=== PATIENT | female | born 1980 | race Two or more races ===

== ENCOUNTER 2021-02-07 11:32 | Emergency (ER) | payer MEDICAID, OTHER ==
[~2021-02-07] VITALS: Ht 170.2 cm; Wt 67.6 kg
[2021-02-07 12:07] LABS: Basophils # (auto) 0 10 ^3/uL (0-0.2); Basophils % (auto) 0.8 % (0.0-2.0); Eosinophils # (auto) 0 10 ^3/uL (0-0.8); Eosinophils % (auto) 0.5 % (0.0-7.0); Hematocrit 39.1 % (36.0-46.0); Hemoglobin 13.5 g/dL (12.2-16.2); Lymphocytes # (auto) 2.7 10 ^3/uL (0.4-5.4); Lymphocytes % (auto) 44.3 % (10.0-50.0); Mean Corpuscular Hemoglobin 33.2 pg (28.0-32.0); Mean Corpuscular Hgb Conc. 34.4 g/dL (32.0-36.0); Mean Corpuscular Volume 96.4 fL (80.0-100.0); Monocytes # (auto) 0.6 10 ^3/uL (0-1.3); Monocytes % (auto) 9.1 % (0.0-12.0); Neutrophils # (auto) 2.8 10 ^3/uL (1.6-8.6); Neutrophils % (auto) 45.3 % (37.0-80.0); Platelet Count (auto) 249 10^3/uL (140-450); Red Blood Cells 4.06 10^6/uL (4.0-5.20); White Blood Cell 6.1 10^3/uL (4.4-10.8)
[2021-02-07 12:26] LABS: Salicylate < 1.7 mg/dL (2.8-20.0)
[2021-02-07 12:30] LABS: Acetaminophen < 2.0 ug/mL (10-30)
[2021-02-07] MEDS ORDERED: ONDANSETRON HCL 4 MG/2 ML VIAL IV ONE (12:45)
[2021-02-07] MEDS ORDERED: ACTIVATED CHARCOAL 50 GM/240 ML SOL PO ONE (12:45)
[2021-02-07 12:58] LABS: Urine Amorphous Crystal MOD /hpf (None Seen); Urine Bacteria MOD /hpf (None Seen); Urine Blood Negative /uL (Negative); Urine Specific Gravity 1.004 (1.001-1.035); Urine WBC 10 /hpf (0 - 5)
[2021-02-07] MEDS ORDERED: SODIUM CHLORIDE 0.9% 1,000 ML IV ONE (13:00)
[2021-02-07 13:07] LABS: Amphetamine Screen, Urine NEGATIVE (NEGATIVE); Barbiturate Scree,Urine NEGATIVE (NEGATIVE); Benzodiazephine Screen, Urine POSITIVE (NEGATIVE); Cannabinoid Screen, Urine NEGATIVE (NEGATIVE); Cocaine Screen, Urine NEGATIVE (NEGATIVE); Opiate Scree,Urine NEGATIVE (NEGATIVE); Phencyclidine Screen, Urine NEGATIVE (NEGATIVE)
[2021-02-07 13:08] LABS: Albumin 3.2 g/dL (3.4-5.0); Calcium 8.4 mg/dL (8.5-10.1); Potassium 3.5 mmol/L (3.5-5.1)
[2021-02-07 13:11] LABS: Bilirubin, Total 0.3 mg/dL (0.2-1.0); Total Protein 6.6 g/dL (6.4-8.2)
[2021-02-07] MEDS ORDERED: FOLIC ACID 1 MG, MULTIPLE VITAMIN 10 ML, MAGNESIUM SULF SDV 50% 8 MEQ, THIAMINE INJ 100... INJ STA ×5 (15:13)
[2021-02-07] MEDS ORDERED: THIAMINE 100mg/ml INJ (200mg/2ml VIAL) IV ONE (15:15)
[2021-02-07 18:15] LABS: Calcium 7.6 mg/dL (8.5-10.1); Potassium 3.9 mmol/L (3.5-5.1)
[2021-02-07 18:20] LABS: BUN/Creatinine Ratio 10.7; Bilirubin, Total 0.2 mg/dL (0.2-1.0); Total Protein 6.1 g/dL (6.4-8.2)
[2021-02-07] MEDS ORDERED: cefTRIAXone 1GM/50ML D5W 50 ML IV ONE (21:15)
[2021-02-07] MEDS ORDERED: ACETAMINOPHEN 325 MG TAB PO ONE (22:00)
[2021-02-08] MEDS ORDERED: HYDROcodone-ACET 5/325MG TAB PO ONE (08:15)
[2021-02-08] MEDS: NITROFURANTOIN 100 mg CAP PO SCH ×2 (08:18→22:05)
[2021-02-08] MEDS ORDERED: CALCIUM CARB 500 MG CHEW TAB ONE (11:24)
[2021-02-08] MEDS ORDERED: CALCIUM CARB 500 MG CHEW TAB PO PRN (11:30)
[2021-02-08] MEDS ORDERED: ACETAMINOPHEN 325 MG TAB PO ONE ×2 (13:26→20:30)
[2021-02-08] MEDS: ACETAMINOPHEN 325 MG TAB PO PRN (13:28)
[2021-02-08] MEDS ORDERED: KETOROLAC TROMETH 60MG/2ML VIAL IM ONE (22:00)
[2021-02-09] MEDS: ACETAMINOPHEN 325 MG TAB PO PRN (08:42)
[2021-02-09] MEDS: NITROFURANTOIN 100 mg CAP PO SCH (11:19)
[2021-02-09 16:36] VITALS: BP 121/76
== END 2021-02-09 17:26 ==
LOC: ER 11:32
DX: T42.4X2A Poisoning by benzodiazepines, intentional self-harm, initial encounter (principal); R40.0 Somnolence; F32.9 Major depressive disorder, single episode, unspecified; N39.0 Urinary tract infection, site not specified; F10.20 Alcohol dependence, uncomplicated; F17.210 Nicotine dependence, cigarettes, uncomplicated; F41.9 Anxiety disorder, unspecified; G89.29 Other chronic pain; Z20.822 Contact with and (suspected) exposure to COVID-19; Z98.84 Bariatric surgery status; Y90.6 Blood alcohol level of 120-199 mg/100 ml; Y92.89 Other specified places as the place of occurrence of the external cause
CPT/HCPCS: 36415; 71045; 74176; 80053; 80307; 80320; 80329; 81001; 81025; 84702; 85025; 87426; 93005; 96361; 96365; 96366; 96367; 96372; 96375; 99285; C9803; J0696; J1885; J2405; J3411; J3475; J7030; U0003

== ENCOUNTER 2022-04-10 17:42 | Emergency (ER) | payer MEDICAID ==
[~2022-04-10] VITALS: Ht 170.2 cm; Wt 77.1 kg
[~2022-04-10 17:42] MED LIST: CITA-77 PO; QUET100T47 PO
[2022-04-10 20:03] LABS: Hematocrit 36.4 % (36.0-46.0); Hemoglobin 12.5 g/dL (12.2-16.2); Mean Corpuscular Hemoglobin 32.7 pg (28.0-32.0); Mean Corpuscular Hgb Conc. 34.4 g/dL (32.0-36.0); Red Blood Cells 3.83 10^6/uL (4.0-5.20); Red Cell Distribution Width 16.6 % (11.8-14.3); White Blood Cell 4.9 10^3/uL (4.4-10.8)
[2022-04-10 20:06] LABS: Band Neutrophils % (manual) 0; Basophils % (manual) 0 (0.0-2.0); Blast Cells 0; Metamyelocytes % 0; Myelocytes % 0; Promyelocytes % 0; Reactive Lymphocytes 0
[2022-04-10 20:14] LABS: Albumin 3.2 g/dL (3.4-5.0); Calcium 8.4 mg/dL (8.5-10.1); Potassium 3.7 mmol/L (3.5-5.1)
[2022-04-10 20:17] LABS: BUN/Creatinine Ratio 14.6; Bilirubin, Total 0.5 mg/dL (0.2-1.0); Total Protein 6.8 g/dL (6.4-8.2)
[2022-04-10 20:42] LABS: Eosinophils % (manual) 1 (0-7); Lymphocytes % (manual) 51 (10.0-50.0); Monocytes % (manual) 8 (0-12)
[2022-04-10] MEDS ORDERED: THIAMINE 100mg/ml INJ (200mg/2ml VIAL) IV ONE (21:30)
[2022-04-10] MEDS ORDERED: SODIUM CHLORIDE 0.9% 1,000 ML IV ONE ×2 (21:30)
[2022-04-10 23:00] VITALS: BP 128/77
== END 2022-04-11 00:38 | disposition left against medical advice (07) ==
LOC: ER 17:42
DX: I10 Essential (primary) hypertension (principal); F10.10 Alcohol abuse, uncomplicated; F32.9 Major depressive disorder, single episode, unspecified; F17.210 Nicotine dependence, cigarettes, uncomplicated; Z79.899 Other long term (current) drug therapy; Y90.9 Presence of alcohol in blood, level not specified
CPT/HCPCS: 36415; 80053; 83540; 85007; 85027; 96361; 96374; 99283; J3411; J7030

== ENCOUNTER 2022-06-12 20:50 | Emergency (ER) | payer MEDICAID | END 2022-06-12 22:15 | disposition left against medical advice (07) | LOC: EDBD 20:50 → ER 20:50 | DX: M54.9 Dorsalgia, unspecified (principal); Z53.21 Procedure and treatment not carried out due to patient leaving prior to being seen by health care provider ==

== ENCOUNTER 2024-06-15 17:35 | Emergency (ER) | payer MEDICAID ==
[~2024-06-15] VITALS: Ht 170.2 cm; Wt 79.0 kg
[2024-06-15 18:04] VITALS: PULSE 98; RESP 13; O2SAT 98
[2024-06-15] MEDS: SODIUM CHLORIDE 0.9% 1,000 ML IVB ONE (18:11)
[2024-06-15] MEDS: ONDANSETRON HCL 4 MG/2 ML VIAL IV ONE (18:15)
[2024-06-15 18:27] LABS: Basophils # (auto) 0 10 ^3/uL (0-0.2); Basophils % (auto) 0.8 % (0.0-2.0); Eosinophils # (auto) 0 10 ^3/uL (0-0.8); Eosinophils % (auto) 0.9 % (0.0-7.0); Hemoglobin 9.7 g/dL (12.2-16.2); Lymphocytes # (auto) 2.7 10 ^3/uL (0.4-5.4); Lymphocytes % (auto) 49.3 % (10.0-50.0); Mean Corpuscular Hemoglobin 27.2 pg (28.0-32.0); Mean Corpuscular Hgb Conc. 32.2 g/dL (32.0-36.0); Mean Corpuscular Volume 84.3 fL (80.0-100.0); Monocytes # (auto) 0.5 10 ^3/uL (0-1.3); Monocytes % (auto) 9.1 % (0.0-12.0); Neutrophils # (auto) 2.2 10 ^3/uL (1.6-8.6); Neutrophils % (auto) 39.9 % (37.0-80.0); Red Blood Cells 3.56 10^6/uL (4.0-5.20); Red Cell Distribution Width 18.7 % (11.8-14.3); White Blood Cell 5.4 10^3/uL (4.4-10.8)
[2024-06-15 18:44] LABS: Acetaminophen < 2.0 UG/ML (10.0-20.0)
[2024-06-15 18:52] LABS: Salicylate < 3.0 mg/dL (2.8-20.0)
[2024-06-15] MEDS ORDERED: ZOFR4T PO (20:27)
[2024-06-15 20:46] VITALS: BP 110/67; PULSE 90; RESP 17; TEMP 97.9; O2SAT 98
== END 2024-06-15 20:46 | disposition home or self-care (01) ==
LOC: ER 17:35
DX: F10.129 Alcohol abuse with intoxication, unspecified (principal); F32.9 Major depressive disorder, single episode, unspecified; F12.10 Cannabis abuse, uncomplicated; F41.9 Anxiety disorder, unspecified; I10 Essential (primary) hypertension; Z98.51 Tubal ligation status; Y90.8 Blood alcohol level of 240 mg/100 ml or more
CPT/HCPCS: 36415; 80320; 80329; 85025; 96361; 96374; 99285; J2405; J7030

== ENCOUNTER 2024-09-21 21:11 | Inpatient (IN) | payer MEDICAID ==
[~2024-09-21] VITALS: Ht 167.6 cm; Wt 81.9 kg
[~2024-09-21 21:11] MED LIST changes: +ZOFR4T PO
[2024-09-21 21:35] VITALS: PULSE 93; RESP 20; O2SAT 96
--- NOTE | 2024-09-21 22:02 | ED.PDOC ---
Altered Mental Status HPI Comments 44-year-old female brought in by EMS presents with a chief complaint of ALOC s/p overdose to Xanax and Metoprolol. Per EMS, patient told her son's that she took a lot of her medication with the intent to commit suicide x onset 2030 this evening. Patient had an empty bottle of Xanax 0.25mg that was refilled yesterday with 60 pills, and took an unknown amount of Metoprolol. Patients son stated to EMS that she took medications with alcohol. Patient is only arousable to sternal rubs, but is A&Ox0. Patient is non-verbal at this time and theres no family bedside to provide further information at this time. Chief Complaint: Overdose Time Seen by MD: 21:50 Primary Care Provider: THANH Reviewed Notes: Medications, Allergies Allergies: Coded Allergies: NO KNOWN ALLERGIES (Unverified , 02/07/21) Home Meds Active Scripts Ondansetron Odt 4MG Tab (ZOFRAN PO) 4 Mg Tb, 4 MG PO Q8HP PRN for 5 Days, #15 TAB ODT TAB-DISSOLVE IN MOUTH, THEN SWALLOW Prov:LA SHAH MD 06/15/24 Reported Medications Quetiapine Fumerate (QUETIAPINE FUMARATE) 100 Mg Tab, 1 TAB PO DAILY AT NIGHT 08/31/21 Citalopram Hydrobromide (Citalopram Hydrobromide) 20 Mg Tab, 1 TAB PO DAILY 08/31/21 Information Source: Patient Mode of Arrival: EMS Severity: Unresponsive Timing: Hours Duration: Since onset Prehospital treatment: None Quality: Decreased Alertness, Change in Behavior Recent: Medication/Drug Abuse History of: None Associated Signs and Symptoms: None Past Medical History PAST MEDICAL HISTORY: Anxiety, Depression, HTN, Liver, Seizures Surgical History: Tubal Ligation 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: No Pertinent 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 Family History Family History: No family hx of Cancer, No family hx of DM, No family hx of Heart maria l Social History Smoker: Non-Smoker Alcohol: Heavy Drugs: Marijuana Lives In: Home Constitutional: denies: chills, diaphoresis, fatigue, fever, malaise, sweats, weakness, others EENTM: denies: blurred vision, double vision, ear bleeding, ear discharge, ear drainage, ear pain, ear ringing, eye pain, eye redness, hearing loss, mouth pain, mouth swelling, nasal discharge, nose bleeding, nose congestion, nose pain, photophobia, tearing, throat pain, throat swelling, voice changes, others Respiratory: denies: cough, hemoptysis, orthopnea, SOB at rest, shortness of breath, SOB with excertion, stridor, wheezing, others Cardiovascular: denies: chest pain, dizzy spells, diaphoresis, Dyspnea on exertion, edema, irregular heart beat, left arm pain, lightheadedness, palpitations, PND, syncope, others Gastrointestinal: denies: abdomen distended, abdominal pain, blood streaked bowels, constipated, diarrhea, dysphagia, difficulty swallowing, hematemesis, melena, nausea, poor appetite, poor fluid intake, rectal bleeding, rectal pain, vomiting, others Genitourinary: denies: abnormal vagina bleeding, burning, dyspareunia, dysuria, flank pain, frequency, hematuria, incontinence, pain, , vagina discharge, urgency, others Neurological: denies: dizziness, fainting, headache, left sided numbness, left sided weakness, numbness, paresthesia, pre-existing deficit, right sided numbness, right sided weakness, seizure, speech problems, tingling, tremors, weakness, others Musculoskeletal: denies: back pain, gout, joint pain, joint swelling, muscle pain, muscle stiffness, neck pain, others Integumetry: denies: bruises, change in color, change in hair/nails, dryness, laceration, lesions, lumps, rash, wounds, others Allergic/Immunocompromised: denies: Difficulty Healing, Frequent Infections, Hives, Itching, others Hematologic/Lymphatic: denies: anemia, blood clots, easy bleeding, easy bruising, swollen glands, others Endocrine: denies: excessive hunger, excessive sweating, excessive thirst, excessive urination, flushing, intolerance to cold, intolerance to heat, unexplained weight gain, unexplained weight loss, others Psychiatric: denies: anxiety, bipolar disorder, depression, hopeless, panic disorder, schizophrenia, sleepless, suicidal, others Unable to Obtain due to: Altered Mental Status All Other Systems: Reviewed and Negative Physical Exam General Appearance: Moderate Distress, Normal HEENT: Normal ENT Inspection, Pharynx Normal, TMs Normal Neck: Full Range of Motion, Non-Tender, Normal, Normal Inspection Respiratory: Chest Non-Tender, Lungs Clear, No Accessory Muscle Use, No Respiratory Distress, Normal Breath Sounds Cardiovascular: No Edema, No JVD, No Murmur, No Gallop, Normal Peripheral Pulses, Regular Rate/Rhythm Breast Exam: Deferred Gastrointestinal: No Organomegaly, Non Tender, No Pulsatile Mass, Normal Bowel Sounds, Soft Genitalia: Deferred Pelvic: Deferred Rectal: Deferred Extremities: No calf tenderness, Normal capillary refill, Normal inspection, Normal range of motion, Non-tender, No pedal edema Musculoskeletal : Apperance: Normal Neurologic: Alert, front office representative II-XII nml as Tested, No Motor Deficits, Normal Affect, Normal Mood, No Sensory Deficits Cerebellar Function: Normal Reflexes: Normal Skin: Dry, Normal Color, Warm Lymphatic: No Adenopathy Was a procedure done? Was a procedure done?: No Differential Diagnosis (ALOC) Differential Diagnosis: Seizure, Drug Overdose, ETOH Intoxication, Other (Suicide ideations) X-Ray, Labs, Meds, VS Vital Signs Date Time Temp Pulse Resp B/P (MAP) Pulse Ox O2 Delivery O2 Flow Rate FiO2 09/21/24 21:37 90 09/21/24 21:26 97.5 96 16 121/84 (96) 95 Lab Test 09/21/24 22:07 09/21/24 21:52 Range/Units Urine Color Colorless Yellow Urine Clarity Clear Clear Urine pH 5.0 5.0-9.0 Urine Specific [place] 1.005 1.001-1.035 Urine Protein Negative Negative Urine Ketones Negative Negative Urine Blood Negative Negative /uL Urine Nitrite Negative Negative Urine Bilirubin Negative Negative Urine Urobilinogen Normal Negative mg/dL Urine Leukocyte Esterase Negative Negative /uL Urine RBC 2 0 - 4 /hpf Urine WBC 2 0 - 5 /hpf Urine Squamous Epithelial Cells Few <5 /hpf Urine Bacteria Few H None Seen /hpf Urine Glucose Normal Normal mg/dL Urine Opiates Screen Neg NEGATIVE Urine Fentanyl Screen Neg NEGATIVE Urine Barbiturates Screen Neg NEGATIVE Urine Phencyclidine Screen Neg NEGATIVE Urine Amphetamines Screen Neg NEGATIVE Urine Benzodiazepines Screen Pos NEGATIVE Urine Cocaine Screen Neg NEGATIVE Urine Cannabinoids Screen Neg NEGATIVE White Blood Count 4.2 L 4.4-10.8 10^3/uL Red Blood Count 3.82 L 4.0-5.20 10^6/uL Hemoglobin 10.6 L 12.2-16.2 g/dL Hematocrit 33.6 L 36.0-46.0 % Mean Corpuscular Volume 88.0 80.0-100.0 fL Mean Corpuscular Hemoglobin 27.8 L 28.0-32.0 pg Mean Corpuscular Hemoglobin Concent 31.6 L 32.0-36.0 g/dL Red Cell Distribution Width 19.5 H 11.8-14.3 % Platelet Count 257 140-450 10^3/uL Mean Platelet Volume 7.6 6.9-10.8 fL Neutrophils (%) (Auto) 76.7 37.0-80.0 % Lymphocytes (%) (Auto) 20.6 10.0-50.0 % Monocytes (%) (Auto) 2.2 0.0-12.0 % Eosinophils (%) (Auto) 0.0 0.0-7.0 % Basophils (%) (Auto) 0.5 0.0-2.0 % Neutrophils # (Auto) 3.2 1.6-8.6 10 ^3/uL Lymphocytes # (Auto) 0.9 0.4-5.4 10 ^3/uL Monocytes # (Auto) 0.1 0-1.3 10 ^3/uL Eosinophils # (Auto) 0 0-0.8 10 ^3/uL Basophils # (Auto) 0 0-0.2 10 ^3/uL Nucleated Red Blood Cells 0.0 % Sodium Level 141 136-145 mmol/L Potassium Level 3.7 3.5-5.1 mmol/L Chloride Level 109 H 98-107 mmol/L Carbon Dioxide Level 21 20-31 mmol/L Anion Gap 11 5-15 Blood Urea Nitrogen 11 9-23 mg/dL Creatinine 0.68 0.550-1.02 mg/dL Glomerular Filtration Rate Calc 110 >90 mL/min BUN/Creatinine Ratio 16.2 10.0-20.0 Serum Glucose 155 H 74-106 mg/dL Calcium Level 9.5 8.7-10.4 mg/dL Magnesium Level 1.5 L 1.6-2.6 mg/dL Total Bilirubin 0.2 0.2-1.0 mg/dL Aspartate Amino Transferase (AST) 20 13-40 U/L Alanine Aminotransferase (ALT) 29 7-40 U/L Alkaline Phosphatase 80 46-116 U/L Troponin I High Sensitivity < 3 L </=34 ng/L Total Protein 6.9 5.7-8.2 g/dL Albumin 4.4 3.2-4.8 g/dL Salicylates Level < 3.0 -30 mg/dL Acetaminophen Level < 2.0 L 10.0-20.0 UG/ML Plasma/Serum Blood Alcohol 222.5 H <10 mg/dL Current Medications Medications (Trade) Dose Ordered Sig/Tommy Route Start Time Stop Time Status Last Admin Glucagon (Glucagen) 1 mg ONCE ONCE IV 09/21/24 22:00 09/21/24 22:01 DC 09/21/24 22:16 PATIENT: KEKE SHAFERACCT: [id number]: [id number] : 1980 LOC: ER ROOM / BED: / AGE / SEX: 44 / F ADM STATUS: REG ER SERVICE 44 ORDERING PHYSICIAN: AVELINO CAPUTO MD PROCEDURE(s): CXRP - CHEST PORTABLE REASON: OD ORDER NUMBER(s): [id number], ACCESSION NUMBER(s): [id number] CHEST RADIOGRAPH Indication:OD Technique: Single frontal view of the chest was obtained Comparison: CHEST PORTABLE on DOS: 02/07/21 FINDINGS: Lines and Tubes: None Lungs: No focal consolidation. Pleura: No effusion. No pneumothorax. Cardiomediastinal contours: Cardiac size appears to have increased since 02/07/2021 Bones: No acute osseous abnormality. IMPRESSION: 1. Increased cardiac size when compared to 02/07/2021 ATED BY: VANNESA SCHOFIELD Jr., DO DICTATED DATE/TIME: 09/21/242239 SIGNED BY: VANNESA SCHOFIELD Jr., SIGNED DATE/TIME: 09/21/242239 Alcohol level is 223 and 3 L of normal saline was administered.. Urine drug screen is positive for benzodiazepine The patient will be admitted to the hospitalist for further evaluation and care. Time of 1ST Reevaluation: 22:20 Reevaluation 1ST: Unchanged Patient Education/Counseling: Pt Unresponsive Family Education/Counseling: No Family Present Departure 1 Departure Time of Disposition: 23:32 Impression: Primary Impression: Alcohol abuse Additional Impression: Overdose of benzodiazepine Qualified Codes: T42.4X4A - Poisoning by benzodiazepines, undetermined, initial encounter Disposition: 09 ADMITTED INPATIENT Admit to: Tele Condition: Critical Critical Care Note Critical Care Time?: Yes (45 min-critical care time only) Stability Stability form required: No I personally scribed for AVELINO CAPUTO MD ([email or web address]) on 09/21/24 at 22:02. Electronically submitted by Marquis Landry ([email or web address]). I personally scribed for AVELINO CAPUTO MD ([email or web address]) on 09/21/24 at 23:13. Electronically submitted by Marquis Landry ([email or web address]). AVELINO CAPUTO MD Sep 21, 2024 22:02
[2024-09-21] MEDS: GLUCAGON EMERG KIT 1mg/1ml IV ONE (22:16)
[2024-09-21 22:22] LABS: Basophils # (auto) 0 10 ^3/uL (0-0.2); Basophils % (auto) 0.5 % (0.0-2.0); Eosinophils # (auto) 0 10 ^3/uL (0-0.8); Hematocrit 33.6 % (36.0-46.0); Hemoglobin 10.6 g/dL (12.2-16.2); Lymphocytes # (auto) 0.9 10 ^3/uL (0.4-5.4); Lymphocytes % (auto) 20.6 % (10.0-50.0); Mean Corpuscular Hemoglobin 27.8 pg (28.0-32.0); Mean Corpuscular Hgb Conc. 31.6 g/dL (32.0-36.0); Monocytes # (auto) 0.1 10 ^3/uL (0-1.3); Monocytes % (auto) 2.2 % (0.0-12.0); Neutrophils # (auto) 3.2 10 ^3/uL (1.6-8.6); Neutrophils % (auto) 76.7 % (37.0-80.0); Platelet Count (auto) 257 10^3/uL (140-450); Red Blood Cells 3.82 10^6/uL (4.0-5.20); Red Cell Distribution Width 19.5 % (11.8-14.3); White Blood Cell 4.2 10^3/uL (4.4-10.8)
--- NOTE | 2024-09-21 22:43 | DVH ---
CHEST RADIOGRAPH Indication:OD Technique: Single frontal view of the chest was obtained Comparison: CHEST PORTABLE on DOS: 02/07/21 FINDINGS: Lines and Tubes: None Lungs: No focal consolidation. Pleura: No effusion. No pneumothorax. Cardiomediastinal contours: Cardiac size appears to have increased since 02/07/2021 Bones: No acute osseous abnormality. IMPRESSION: 1. Increased cardiac size when compared to 02/07/2021
[2024-09-21 22:47] LABS: Alanine Aminotransferase 29 U/L (7-40); Albumin 4.4 g/dL (3.2-4.8); Alkaline Phosphatase 80 U/L (46-116); Anion Gap 11 (5-15); Aspartate Aminotransferase 20 U/L (13-40); BUN/Creatinine Ratio 16.2 (10.0-20.0); Bilirubin, Total 0.2 mg/dL (0.2-1.0); Blood Alcohol 222.5 mg/dL (<10); Blood Urea Nitrogen 11 mg/dL (9-23); Calcium 9.5 mg/dL (8.7-10.4); Carbon Dioxide 21 mmol/L (20-31); Chloride 109 mmol/L (98-107); Glucose 155 mg/dL (74-106); Magnesium 1.5 mg/dL (1.6-2.6); Potassium 3.7 mmol/L (3.5-5.1); Sodium 141 mmol/L (136-145); Total Protein 6.9 g/dL (5.7-8.2)
[2024-09-21 22:47] LABS: Urine Bacteria FEW /hpf (None Seen); Urine Blood Negative /uL (Negative); Urine Clarity Clear (Clear); Urine Color Colorless (Yellow); Urine Protein, UAD Negative (Negative); Urine Specific Gravity 1.005 (1.001-1.035); Urine Urobilinogen Normal (Negative); Urine WBC 2 /hpf (0 - 5)
[2024-09-21 22:48] LABS: Amphetamine Screen, Urine Neg (NEGATIVE); Barbiturate Scree,Urine Neg (NEGATIVE); Benzodiazephine Screen, Urine Pos (NEGATIVE); Cannabinoid Screen, Urine Neg (NEGATIVE); Cocaine Screen, Urine Neg (NEGATIVE); Opiate Scree,Urine Neg (NEGATIVE); Phencyclidine Screen, Urine Neg (NEGATIVE)
[2024-09-21 22:53] LABS: Acetaminophen < 2.0 UG/ML (10.0-20.0)
[2024-09-21 22:58] LABS: Salicylate < 3.0 mg/dL (-30)
[2024-09-21] MEDS: SODIUM CHLORIDE 0.9% 3,000 ML IV ONE (23:56)
[2024-09-22] MEDS ORDERED: ONDANSETRON HCL 4 MG/2 ML VIAL IV PRN
[2024-09-22] MEDS ORDERED: MORPHINE SULFATE INJ 2 MG/ml SYRG IV PRN
[2024-09-22] MEDS ORDERED: NITROGLYCERIN 0.4 MG SL TAB SL PRN
[2024-09-22] MEDS: FLUMAZENIL 0.1 MG/ML INJ 10ML MDV IV ONE (00:22)
[2024-09-22] MEDS: SODIUM CHLORIDE 0.9% 1,000 ML IV SCH (00:25)
--- NOTE | 2024-09-22 06:08 | DVHHP2 ---
History of Present Illness Reason for Visit: Overdose History of Present Illness 44-year-old female presents for evaluation of altered mental status. Patient presents for evaluation of altered mental status after she took an unknown amount of Xanax and metoprolol. Per family patient took the medication in attempt to commit suicide. She has had two other previous attempts. She is currently lethargic and responsive painful stimuli. Past Medical History Hypertension, seizure, depression Past Surgical History Tubal ligation Family History Noncontributory Smoke: No ALCOHOL: heavy Drugs: Marijuana Lives: with Family Review of Systems Review of Systems Review of systems are limited due to the patient's altered mental status. Allergies: Coded Allergies: NO KNOWN ALLERGIES (Unverified , 02/07/21) Medications Current Medications Medications Dose Ordered Sig/Tommy Route Start Time Stop Time Status Last Admin Dose Admin Sodium Chloride 1,000 ml @ 90 mls/hr Q11H7M IV 09/22/24 00:00 09/22/24 00:25 90 MLS/HR Ondansetron HCl 4 mg Q4HP PRN IV 09/22/24 00:00 Nitroglycerin 0.4 mg Q5MINP PRN SL 09/22/24 00:00 Morphine Sulfate 2 mg Q30M PRN IV 09/22/24 00:00 Exam Vital Signs Vital Signs Date Time Temp Pulse Resp B/P (MAP) Pulse Ox O2 Delivery O2 Flow Rate FiO2 09/22/24 04:05 92 20 121/76 (91) 96 09/22/24 02:27 96.5 96.5 09/22/24 01:29 Nasal Cannula* 2 28 Exam Gen: 44-year-old female in mild distress Skin: Warm, dry, normal color and texture, no rash. HEENT: Normocephalic atraumatic, mucous membranes moist and pink. Neck: Cervical and supraclavicular nodes normal without enlargement, trachea is midline, thyroid gland is normal without masses. Pulmonary: Clear to auscultation and percussion bilaterally. Cardiac: Regular rate and rhythm. No murmur Abdomen: Soft, nontender, nondistended, bowel sounds present all 4 quadrants, no guarding, no rigidity, no organomegaly. Extremities: No cyanosis, clubbing, no edema Neuro: Cranial nerves II through XII grossly intact, normal affect and speech, no focal motor deficits. Labs/Xrays ORDERING PHYSICIAN: AVELINO CAPUTO MD PROCEDURE(s): CXRP - CHEST PORTABLE REASON: OD ORDER NUMBER(s): [id number], ACCESSION NUMBER(s): [id number] CHEST RADIOGRAPH Indication:OD Technique: Single frontal view of the chest was obtained Comparison: CHEST PORTABLE on DOS: 02/07/21 FINDINGS: Lines and Tubes: None Lungs: No focal consolidation. Pleura: No effusion. No pneumothorax. Cardiomediastinal contours: Cardiac size appears to have increased since 02/07/2021 Bones: No acute osseous abnormality. IMPRESSION: 1. Increased cardiac size when compared to 02/07/2021 Labs Test 09/22/24 05:40 09/22/24 00:21 09/21/24 22:07 09/21/24 21:52 Range/Units Troponin I High Sensitivity < 3 L </=34 ng/L Urine Color Colorless Yellow Urine Clarity Clear Clear Urine pH 5.0 5.0-9.0 Urine Specific [place] 1.005 1.001-1.035 Urine Protein Negative Negative Urine Ketones Negative Negative Urine Blood Negative Negative /uL Urine Nitrite Negative Negative Urine Bilirubin Negative Negative Urine Urobilinogen Normal Negative mg/dL Urine Leukocyte Esterase Negative Negative /uL Urine RBC 2 0 - 4 /hpf Urine WBC 2 0 - 5 /hpf Urine Squamous Epithelial Cells Few <5 /hpf Urine Bacteria Few H None Seen /hpf Urine Glucose Normal Normal mg/dL Urine Opiates Screen Neg NEGATIVE Urine Fentanyl Screen Neg NEGATIVE Urine Barbiturates Screen Neg NEGATIVE Urine Phencyclidine Screen Neg NEGATIVE Urine Amphetamines Screen Neg NEGATIVE Urine Benzodiazepines Screen Pos NEGATIVE Urine Cocaine Screen Neg NEGATIVE Urine Cannabinoids Screen Neg NEGATIVE Eosinophils (%) (Auto) 0.0 0.0-7.0 % Eosinophils # (Auto) 0 0-0.8 10 ^3/uL Basophils # (Auto) 0 0-0.2 10 ^3/uL Nucleated Red Blood Cells 0.0 % Magnesium Level 1.5 L 1.6-2.6 mg/dL Salicylates Level < 3.0 -30 mg/dL Acetaminophen Level < 2.0 L 10.0-20.0 UG/ML Plasma/Serum Blood Alcohol 222.5 H <10 mg/dL Assessment/Plan Assessment/Plan Assessment Toxic encephalopathy Benzodiazepine overdose Suicide attempt Alcohol intoxication Plan Admit the patient to [facility] to the hospitalist Follow poison control recommendations Maintenance IV fluids Continue treatment per orders. Total critical care time excluding procedures performed this 50 minutes. Plan discussed with: Other My Orders Orders - DOMI ORTIZ Procedure Category Date Status Time Sodium Chloride 0.9% PHA 09/22/24 In Process 00:00 * Psychiatric Consult CONS 09/21/24 Transmitted 23:54 Admit ADMIT 09/21/24 Transmitted 23:54 Ondansetron Hcl PHA 09/22/24 In Process (Zofran) 00:00 Complete Blood Count LAB 09/22/24 In Process 04:00 Comprehensive LAB 09/22/24 In Process Metabolic Panel 04:00 Npo (Nothing By DIET 09/22/24 Transmitted Mouth) Diet Breakfast Condition: Critical OLVIN 09/21/24 In Process 23:54 Bedrest With Bathroom [facility] 09/21/24 In Process Privileg 23:54 Nitroglycerin [facility] 09/22/24 In Process Sublingual (Ntrostat 00:00 Morphine Sulfate PHA 09/22/24 In Process Injection 00:00 Stat Ekg For Chest [facility] 09/21/24 In Process Pain 23:54 Notify Md Of Changes [facility] 09/21/24 In Process From Base 23:54 Certified Registered Dental Assistant For [facility] 09/21/24 In Process 24 Hours 23:54 Emergency Dysrhythmia [facility] 09/21/24 In Process Protocol 23:54 Rhythm Strips Once [facility] 09/21/24 In Process Every Shift 23:54 Oxygen By Nasal RT 09/21/24 Transmitted Cannula 23:54 Date of Service: Sep 21, 2024 Billing Provider: DOMI ORTIZ Common Visit Codes: [id number] CARE 30-74 MIN DOMI ORTIZ Sep 22, 2024 06:08
[2024-09-22 06:17] LABS: Basophils # (auto) 0 10 ^3/uL (0-0.2); Basophils % (auto) 0.4 % (0.0-2.0); Eosinophils # (auto) 0 10 ^3/uL (0-0.8); Hematocrit 29.4 % (36.0-46.0); Hemoglobin 9.4 g/dL (12.2-16.2); Lymphocytes # (auto) 0.6 10 ^3/uL (0.4-5.4); Lymphocytes % (auto) 24.3 % (10.0-50.0); Mean Corpuscular Hgb Conc. 31.9 g/dL (32.0-36.0); Mean Corpuscular Volume 87.7 fL (80.0-100.0); Monocytes # (auto) 0.1 10 ^3/uL (0-1.3); Monocytes % (auto) 2.7 % (0.0-12.0); Neutrophils # (auto) 1.8 10 ^3/uL (1.6-8.6); Neutrophils % (auto) 72.6 % (37.0-80.0); Platelet Count (auto) 256 10^3/uL (140-450); Red Blood Cells 3.35 10^6/uL (4.0-5.20); Red Cell Distribution Width 19.2 % (11.8-14.3); White Blood Cell 2.4 10^3/uL (4.4-10.8)
[2024-09-22 06:22] LABS: Alanine Aminotransferase 19 U/L (7-40); Albumin 3.9 g/dL (3.2-4.8); Alkaline Phosphatase 69 U/L (46-116); Anion Gap 13 (5-15); Aspartate Aminotransferase 14 U/L (13-40); Blood Urea Nitrogen 11 mg/dL (9-23); Calcium 8.3 mg/dL (8.7-10.4); Carbon Dioxide 16 mmol/L (20-31); Chloride 113 mmol/L (98-107); Glucose 128 mg/dL (74-106); Potassium 3.7 mmol/L (3.5-5.1); Sodium 142 mmol/L (136-145)
[2024-09-22 06:23] LABS: Bilirubin, Total 0.2 mg/dL (0.2-1.0); Total Protein 5.9 g/dL (5.7-8.2)
--- NOTE | 2024-09-22 06:48 | ECG ---
[facility] Test Date: 2024-09-21 Test Time: 21:37:05 Pat Name: KEKE SHAFER Department: ED Room: 0223T Gender: F Dot Compliance Manager: FERNANDO : 1980 Requested By: AVELINO CAPUTO Order Number: [id number] Reading MD: Anthony Hsieh Measurements Intervals [place] Rate: 90 P: 32 MN: 168 QRS: -1 QRSD: 101 T: 26 QT: 386 QTc: 473 Interpretive Statements Sinus rhythm Consider anterior infarct Electronically Signed On 09-30-2024 12:59:10 PST by Anthony Hsieh Please click the below link to view image of tracing.
[2024-09-22 07:30] VITALS: PULSE 103; RESP 17; O2SAT 97
[2024-09-22] MEDS ORDERED: DEXTROSE (50%) 50ML SYRG IV PRN (14:30)
--- NOTE | 2024-09-22 14:35 | DVHPN2 ---
Subjective Patient reports that, I do not want to be around anymore. Reviewed: Care Plan, H&P, Labs, Medications Changes from previous H/P or p: No Changes General: Per HPI Objective Vitals Vital Signs Date Time Temp Pulse Resp B/P (MAP) Pulse Ox O2 Delivery O2 Flow Rate FiO2 09/22/24 12:00 102 14 153/90 (111) 98 09/22/24 07:30 Nasal Cannula* 2 28 09/22/24 02:27 96.5 96.5 Intake/Output Intake and Output 09/22/24 07:00 Intake Total 3540 ml Balance 3540 ml Intake IV Total 3540 ml General Appearance: Alert, Oriented X3, Cooperative, mild distress HEENT: Atraumatic, PERRLA Lungs: Clear to auscultation, Normal air movement Cardiovascular: Normal S1, Normal S2 Abdomen: Normal bowel sounds, Soft, No tenderness Musculoskeletal: Normal sensory function, Normal motor function Neuro: Normal gait, Normal speech Psych/Mental Status: Mental status NL, Mood NL Medications Current Medications Medications Dose Ordered Sig/Tommy Route Start Time Stop Time Status Last Admin Dose Admin Sodium Chloride 1,000 ml @ 90 mls/hr Q11H7M IV 09/22/24 00:00 09/22/24 12:00 90 MLS/HR Ondansetron HCl 4 mg Q4HP PRN IV 09/22/24 00:00 Nitroglycerin 0.4 mg Q5MINP PRN SL 09/22/24 00:00 Morphine Sulfate 2 mg Q30M PRN IV 09/22/24 00:00 Laboratory Results Laboratory Tests 09/22/24 05:40 Chemistry Test 09/21/24 21:52 09/22/24 05:40 Albumin 4.4 g/dL (3.2-4.8) 3.9 g/dL (3.2-4.8) Calcium Level 9.5 mg/dL (8.7-10.4) 8.3 mg/dL (8.7-10.4) L Magnesium Level 1.5 mg/dL (1.6-2.6) L Total Protein 6.9 g/dL (5.7-8.2) 5.9 g/dL (5.7-8.2) LFT Test 09/21/24 21:52 09/22/24 05:40 Alanine Aminotransferase (ALT) 29 U/L (7-40) 19 U/L (7-40) Alkaline Phosphatase 80 U/L (46-116) 69 U/L (46-116) Aspartate Amino Transferase (AST) 20 U/L (13-40) 14 U/L (13-40) Total Bilirubin 0.2 mg/dL (0.2-1.0) 0.2 mg/dL (0.2-1.0) Urinalysis Test 09/21/24 22:07 Urine Color Colorless (Yellow) Urine Clarity Clear (Clear) Urine pH 5.0 (5.0-9.0) Urine Specific [place] 1.005 (1.001-1.035) Urine Protein Negative (Negative) Urine Ketones Negative (Negative) Urine Blood Negative /uL (Negative) Urine Nitrite Negative (Negative) Urine Bilirubin Negative (Negative) Urine Urobilinogen Normal mg/dL (Negative) Urine Leukocyte Esterase Negative /uL (Negative) Urine RBC 2 /hpf (0 - 4) Urine WBC 2 /hpf (0 - 5) Urine Squamous Epithelial Cells Few /hpf (<5) Urine Bacteria Few /hpf (None Seen) H Urine Glucose Normal mg/dL (Normal) Labs and/or images reviewed: Labs reviewed by me, Image(s) reviewed by me Assessment/Plan Assessment/Plan Impression: -suicidal ideation with suicide attempt. Patient took metoprolol and Xanax, prescribed medications to her -diabetes mellitus -toxic metabolic encephalopathy -probable schizoaffective disorder -primary hypertension -alcoholism Plan: -patient continues to report having a lot of anxiety, depression, inability to sleep. -psychiatry consultation -start Seroquel 100 mg p.o. b.i.d. -hydroxyzine 10 mg p.o. q.6 hours as needed for anxiety, insomnia -regular insulin sliding scale -repeat labs in a.m. -monitor patient closely, recommend bedside sitter Total time spent with patient discussing and formulating plan of care: 35 minutes. This medical document was created using an electronic medical record system with [employer] system. Although this document has been carefully reviewed, there may still be some phonetic and typographical errors. These areas are purely typographical due to imperfections of the software programs, and do not reflect any compromise in the patient's medical care. Plan discussed with: Patient, Other (RN) My Orders Orders - EMBER COOK NP Procedure Category Date Status Time Quetiapine Fumarate PHA 09/22/24 Verified Tablet (Seroquel Tab 22:00 Hydroxyzine Oral PHA 09/22/24 Verified (Vistaril Oral) 14:30 Glucose Blood PHA 09/22/24 Verified (Accu-Chek Comfort 17:00 Mild Sliding Scale PHA 09/22/24 Verified 17:00 Dextrose 50% Syringe PHA 09/22/24 Verified 14:30 Hemoglobin A1c LAB 09/22/24 Verified 14:25 Date of Service: Sep 22, 2024 Billing Provider: EMEBR COOK NP Common Visit Codes: [id number] INP/OBS CARE(HIGH) EMBER COOK NP Sep 22, 2024 14:35
[2024-09-22] MEDS: ACCU-CHEK COMFORT CURVE STRIP VI SCH (17:48)
[2024-09-22] MEDS: InsuLIN REG 1unit/0.01ml Soln (100units/ml) SC SCH (18:16)
[2024-09-22] MEDS: hydrOXYzine HCL 10 MG TAB PO PRN (18:32)
[2024-09-22 19:27] VITALS: PULSE 122; RESP 17; O2SAT 98
[2024-09-22] MEDS: QUEtiapine FUMARATE 100 MG TAB PO SCH (22:01)
[2024-09-23 08:00] VITALS: PULSE 105; RESP 17; O2SAT 99
[2024-09-23 09:47] LABS: Chloride 112 mmol/L (98-107); Potassium 3.7 mmol/L (3.5-5.1); Sodium 144 mmol/L (136-145)
[2024-09-23 09:48] LABS: Anion Gap 11 (5-15); Calcium 8.5 mg/dL (8.7-10.4); Carbon Dioxide 21 mmol/L (20-31)
[2024-09-23 09:53] LABS: BUN/Creatinine Ratio 17.5 (10.0-20.0); Blood Urea Nitrogen 10 mg/dL (9-23); Glucose 124 mg/dL (74-106)
[2024-09-23 09:54] LABS: Magnesium 1.3 mg/dL (1.6-2.6)
--- NOTE | 2024-09-23 10:36 | DVHPN2 ---
Subjective Patient denies any symptoms. Reviewed: Care Plan, H&P, Labs, Medications Changes from previous H/P or p: No Changes General: Per HPI Objective Vitals Vital Signs Date Time Temp Pulse Resp B/P (MAP) Pulse Ox O2 Delivery O2 Flow Rate FiO2 09/23/24 08:00 97.9 105 17 149/87 (107) 99 97.9 09/23/24 08:00 Room Air* 0 21 Intake/Output Intake and Output 09/23/24 07:00 Intake Total 1810 ml Balance 1810 ml Intake IV Total 1810 ml General Appearance: Alert, Oriented X3, Cooperative, mild distress HEENT: Atraumatic, PERRLA Lungs: Clear to auscultation, Normal air movement Cardiovascular: Normal S1, Normal S2, Other (Sinus tachycardic) Abdomen: Normal bowel sounds, Soft, No tenderness Musculoskeletal: Normal sensory function, Normal motor function Neuro: Normal gait, Normal speech Psych/Mental Status: Mental status NL, Mood NL Medications Current Medications Medications Dose Ordered Sig/Tommy Route Start Time Stop Time Status Last Admin Dose Admin Ondansetron HCl 4 mg Q4HP PRN IV 09/22/24 00:00 Nitroglycerin 0.4 mg Q5MINP PRN SL 09/22/24 00:00 Morphine Sulfate 2 mg Q30M PRN IV 09/22/24 00:00 Quetiapine Fumarate 100 mg BID PO 09/22/24 22:00 09/22/24 22:01 100 MG Hydroxyzine HCl 10 mg Q6HP PRN PO 09/22/24 14:30 09/22/24 18:32 10 MG Diagnostic Test (Pha) 1 strip ACHS 09/22/24 17:00 09/23/24 06:44 1 STRIP Insulin Human Regular ACHS SC 09/22/24 17:00 09/22/24 22:09 2 UNITS Dextrose 50 ml UD PRN IV 09/22/24 14:30 Lorazepam 0.5 mg Q4HPRN PRN PO 09/22/24 18:15 Metoprolol Tartrate 25 mg BID PO 09/23/24 10:00 Laboratory Results Laboratory Tests 09/22/24 05:40 09/23/24 09:14 Chemistry Test 09/23/24 09:14 Calcium Level 8.5 mg/dL (8.7-10.4) L Magnesium Level 1.3 mg/dL (1.6-2.6) L Urinalysis Test 09/21/24 22:07 Urine Color Colorless (Yellow) Urine Clarity Clear (Clear) Urine pH 5.0 (5.0-9.0) Urine Specific [place] 1.005 (1.001-1.035) Urine Protein Negative (Negative) Urine Ketones Negative (Negative) Urine Blood Negative /uL (Negative) Urine Nitrite Negative (Negative) Urine Bilirubin Negative (Negative) Urine Urobilinogen Normal mg/dL (Negative) Urine Leukocyte Esterase Negative /uL (Negative) Urine RBC 2 /hpf (0 - 4) Urine WBC 2 /hpf (0 - 5) Urine Squamous Epithelial Cells Few /hpf (<5) Urine Bacteria Few /hpf (None Seen) H Urine Glucose Normal mg/dL (Normal) Labs and/or images reviewed: Labs reviewed by me, Image(s) reviewed by me Assessment/Plan Assessment/Plan Impression: -suicidal ideation with suicide attempt. Patient took metoprolol and Xanax, prescribed medications to her -diabetes mellitus -toxic metabolic encephalopathy -probable schizoaffective disorder -primary hypertension -alcoholism Plan: Events: Patient reporting headache. States that she feels better than yesterday. Patient also reporting today that she drinks a 5th of Tequila daily. -start MVI, thiamine -patient continues to report having a lot of anxiety, depression, inability to sleep. -psychiatry consultation : Proceed with tele psych consult today. -continue Seroquel 100 mg p.o. b.i.d. -hydroxyzine 10 mg p.o. q.6 hours as needed for anxiety, insomnia -regular insulin sliding scale -repeat labs in a.m. -monitor patient closely, recommend bedside sitter Total time spent with patient discussing and formulating plan of care: 35 minutes. This medical document was created using an electronic medical record system with [employer] dictation system. Although this document has been carefully reviewed, there may still be some phonetic and typographical errors. These areas are purely typographical due to imperfections of the software programs, and do not reflect any compromise in the patient's medical care. Plan discussed with: Patient, Other (RN) My Orders Orders - EMBER COOK NP Procedure Category Date Status Time Quetiapine Fumarate PHA 09/22/24 In Process Tablet (Seroquel Tab 22:00 Hydroxyzine Oral PHA 09/22/24 In Process (Vistaril Oral) 14:30 Glucose Blood PHA 09/22/24 In Process (Accu-Chek Comfort 17:00 Insulin R (Human) PHA 09/22/24 In Process (Insulin R) 17:00 Dextrose 50% Syringe PHA 09/22/24 In Process 14:30 Consistent DIET 09/22/24 Transmitted Carb(Ccho)Diabetes Dinner Metoprolol Tartrate PHA 09/23/24 In Process Tablet (Lopressor Ta 10:00 Acetaminophen Tablet PHA 09/23/24 Verified (Tylenol Tablet) 10:45 Multiple Vitamin PHA 09/24/24 Verified Tablet (Mvi Tab) 10:00 Multiple Vitamin PHA 09/23/24 Verified Tablet (Mvi Tab) 10:45 Thiamine Tab PHA 09/23/24 Verified 10:45 Thiamine Tab PHA 09/24/24 Verified 10:00 Date of Service: Sep 23, 2024 Billing Provider: EMBER COOK NP Common Visit Codes: [id number] INP/OBS CARE(HIGH) EMBER COOK NP Sep 23, 2024 10:36
[2024-09-23] MEDS: METOPROLOL TARTRATE 25 MG TAB PO SCH (10:56)
[2024-09-23] MEDS: THIAMINE HCL 100 MG TAB PO ONE (10:56)
[2024-09-23] MEDS: ACETAMINOPHEN 325 MG TAB PO PRN (10:57)
[2024-09-23] MEDS: MULTIPLE VITAMIN TAB PO ONE (10:58)
[2024-09-23] MEDS: LORazepam 0.5 MG TAB PO PRN (17:23)
--- NOTE | 2024-09-23 17:28 | DVHINCON2 ---
Date of Service if different f: Sep 23, 2024 Consultation ([place]) Labs Laboratory Tests Test 09/21/24 21:52 09/21/24 22:07 09/22/24 00:21 09/22/24 05:40 Salicylates Level < 3.0 mg/dL (-30) Acetaminophen Level < 2.0 UG/ML (10.0-20.0) Plasma/Serum Blood Alcohol 222.5 mg/dL (<10) Urine Color Colorless (Yellow) Urine Clarity Clear (Clear) Urine pH 5.0 (5.0-9.0) Urine Specific [place] 1.005 (1.001-1.035) Urine Protein Negative (Negative) Urine Ketones Negative (Negative) Urine Blood Negative /uL (Negative) Urine Nitrite Negative (Negative) Urine Bilirubin Negative (Negative) Urine Urobilinogen Normal mg/dL (Negative) Urine Leukocyte Esterase Negative /uL (Negative) Urine RBC 2 /hpf (0 - 4) Urine WBC 2 /hpf (0 - 5) Urine Squamous Epithelial Cells Few /hpf (<5) Urine Bacteria Few /hpf (None Seen) Urine Glucose Normal mg/dL (Normal) Urine Opiates Screen Neg (NEGATIVE) Urine Fentanyl Screen Neg (NEGATIVE) Urine Barbiturates Screen Neg (NEGATIVE) Urine Phencyclidine Screen Neg (NEGATIVE) Urine Amphetamines Screen Neg (NEGATIVE) Urine Benzodiazepines Screen Pos (NEGATIVE) Urine Cocaine Screen Neg (NEGATIVE) Urine Cannabinoids Screen Neg (NEGATIVE) Troponin I High Sensitivity < 3 ng/L (</=34) White Blood Count 2.4 10^3/uL (4.4-10.8) Red Blood Count 3.35 10^6/uL (4.0-5.20) Hemoglobin 9.4 g/dL (12.2-16.2) Hematocrit 29.4 % (36.0-46.0) Mean Corpuscular Volume 87.7 fL (80.0-100.0) Mean Corpuscular Hemoglobin 28.0 pg (28.0-32.0) Mean Corpuscular Hemoglobin Concent 31.9 g/dL (32.0-36.0) Red Cell Distribution Width 19.2 % (11.8-14.3) Platelet Count 256 10^3/uL (140-450) Mean Platelet Volume 7.8 fL (6.9-10.8) Neutrophils (%) (Auto) 72.6 % (37.0-80.0) Lymphocytes (%) (Auto) 24.3 % (10.0-50.0) Monocytes (%) (Auto) 2.7 % (0.0-12.0) Eosinophils (%) (Auto) 0.0 % (0.0-7.0) Basophils (%) (Auto) 0.4 % (0.0-2.0) Neutrophils # (Auto) 1.8 10 ^3/uL (1.6-8.6) Lymphocytes # (Auto) 0.6 10 ^3/uL (0.4-5.4) Monocytes # (Auto) 0.1 10 ^3/uL (0-1.3) Eosinophils # (Auto) 0 10 ^3/uL (0-0.8) Basophils # (Auto) 0 10 ^3/uL (0-0.2) Nucleated Red Blood Cells 0.0 % Hemoglobin A1c 5.5 % A1C (<5.7) Total Bilirubin 0.2 mg/dL (0.2-1.0) Aspartate Amino Transf (AST/SGOT) 14 U/L (13-40) Alanine Aminotransferase (ALT/SGPT) 19 U/L (7-40) Alkaline Phosphatase 69 U/L (46-116) Total Protein 5.9 g/dL (5.7-8.2) Albumin 3.9 g/dL (3.2-4.8) Test 09/23/24 09:14 09/23/24 11:52 Sodium Level 144 mmol/L (136-145) Potassium Level 3.7 mmol/L (3.5-5.1) Chloride Level 112 mmol/L (98-107) Carbon Dioxide Level 21 mmol/L (20-31) Anion Gap 11 (5-15) Blood Urea Nitrogen 10 mg/dL (9-23) Creatinine 0.57 mg/dL (0.550-1.02) Glomerular Filtration Rate Calc 115 mL/min (>90) BUN/Creatinine Ratio 17.5 (10.0-20.0) Serum Glucose 124 mg/dL (74-106) Calcium Level 8.5 mg/dL (8.7-10.4) Magnesium Level 1.3 mg/dL (1.6-2.6) Bedside Glucose 126 mg/dl (70-106) Appetite: Fair Appearance: Stated age Psychomotor activity: WNL Behavioral: Cooperative Eye contact: Appropriate Speech: WNL Affect: Mood Congruent Mood: Depressed Thought processes: Linear/Goal-directed Thought content: WNL Suicidal ideations: Absent Homicidal ideations: Absent Orientation: Person, Place, Time, Situation Memory intact: Recent Intellect: Average Abstractability: WNL Concentration: Adequate Attention: Adequate Judgement: Poor Insight: Poor Vitals Vital Signs Date Time Temp Pulse Resp B/P (MAP) Pulse Ox O2 Delivery O2 Flow Rate FiO2 09/23/24 12:00 98 09/23/24 12:00 109/46 09/23/24 12:00 16 98 09/23/24 08:00 97.9 97.9 09/23/24 08:00 Room Air* 0 21 Current medications Current Medications Medications Dose Ordered Sig/Tommy Route Start Time Stop Time Status Last Admin Dose Admin Ondansetron HCl 4 mg Q4HP PRN IV 09/22/24 00:00 Nitroglycerin 0.4 mg Q5MINP PRN SL 09/22/24 00:00 Morphine Sulfate 2 mg Q30M PRN IV 09/22/24 00:00 Quetiapine Fumarate 100 mg BID PO 09/22/24 22:00 09/23/24 10:56 100 MG Hydroxyzine HCl 10 mg Q6HP PRN PO 09/22/24 14:30 09/22/24 18:32 10 MG Diagnostic Test (Pha) 1 strip ACHS 09/22/24 17:00 09/23/24 11:55 1 STRIP Insulin Human Regular ACHS SC 09/22/24 17:00 09/22/24 22:09 2 UNITS Dextrose 50 ml UD PRN IV 09/22/24 14:30 Lorazepam 0.5 mg Q4HPRN PRN PO 09/22/24 18:15 Metoprolol Tartrate 25 mg BID PO 09/23/24 10:00 09/23/24 10:56 25 MG Acetaminophen 650 mg Q6HP PRN PO 09/23/24 10:45 09/23/24 10:57 650 MG Multivitamins 1 tab DAILY PO 09/24/24 10:00 Thiamine HCl 100 mg DAILY PO 09/24/24 10:00 Medication adjusted: No Diagnosis: Unspecified mood disorder, alcohol abuse disorder. r/o borderline personality disorder Plan : This is a 44-year-old female with multiple prior suicide attempts and lacks outpatient mental health support, recommend start 5150 hold and transfer to inpatient psychiatric facility for treatment and stabilization History of Present Illness Reason for Consult : suicide attempt HPI : This is a 44-year-old female BIB ambulance after suicide attempt. She was evaluated via telepsychiatry. She reports having poor relationships with both parents and after speaking to mom on the phone wanted to kill herself. She reports recent refills of her medications 0.25mg of Xanax and Metoprolol. She reports ingesting 60tabs each of both medications. She reports frequently feeling depressed and having thoughts of suicide, but after an attempt, she has regrets. After ingesting the pills, she reported to her son and asked to go the hospital. She denies feeling hopeless, anhedonia or worthlessness now but sometimes does have these feelings. She now denies suicidal/homicidal ideation. She denies any hx of bonnie or psychosis. She also denies auditory/visual hallucinations or paranoia currently. Past Psychiatric History : She reports 2 prior suicide attempts, last in in 2019 via OD on pills and inpatient psych hospitalization. She denies current mental outpatient follow up. She is prescribed citalopram 20mg, xanax 0.25mg and seroquel 100mg BID by her PCP. She reports prior diagnosis of bipolar and anxiety disorder Past Medical History : She reports hx of HTN Social History : She lives with boyfriend of 21years, and her 2 sons. She is employed in medical records. She reports daily use of alcohol for over year ago. She drinks 5-6 shots of tequila weekdays and a 5th on weekends. She denies other substance use. She denies nicotine use. She reports boyfriend has a firearm but unaware of the location. She reports mom has either Bipolar or schizophrenia. She denies other known family history DELORES ROBLES DNP Sep 23, 2024 17:28
[2024-09-23 17:46] VITALS: BP 122/96; PULSE 105; RESP 17; TEMP 98; O2SAT 99
[2024-09-23 18:36] VITALS: BP 122/96; PULSE 105; RESP 17; TEMP 98; O2SAT 99
[2024-09-23] MEDS ORDERED: ALBU108A5 IN (19:42)
[2024-09-23] MEDS ORDERED: ALBU0.084 NEB (19:42)
[2024-09-23] MEDS ORDERED: NITR-87 PO (19:42)
[2024-09-23] MEDS ORDERED: METF-370 PO (19:42)
[2024-09-23] MEDS ORDERED: ALPR0.25 PO (19:42)
[2024-09-23] MEDS ORDERED: METO-158 PO (19:42)
[2024-09-23] MEDS ORDERED: FERR325T24 PO (19:42)
[2024-09-23] MEDS ORDERED: CITA10TA8 PO (19:42)
[2024-09-23] MEDS ORDERED: LOSA-535 PO (19:42)
[2024-09-23] MEDS ORDERED: CYA100I IM (19:42)
[2024-09-23] MEDS ORDERED: CHOL20007 PO (19:42)
[2024-09-23] MEDS ORDERED: CLON0.1T PO (19:42)
[2024-09-23] MEDS ORDERED: SEMA2INJ3 SC (19:42)
[2024-09-23 20:00] VITALS: PULSE 101; PULSE 110; RESP 17; O2SAT 100
[2024-09-23 21:00] VITALS: BP 141/83; PULSE 109; RESP 17; TEMP 97.5; O2SAT 100
[2024-09-24 05:00] VITALS: BP 138/85; PULSE 107; RESP 19; TEMP 99.4; O2SAT 96
[2024-09-24 06:47] LABS: Chloride 104 mmol/L (98-107); Potassium 3.8 mmol/L (3.5-5.1); Sodium 140 mmol/L (136-145)
[2024-09-24 06:48] LABS: Anion Gap 11 (5-15); Calcium 9.3 mg/dL (8.7-10.4); Carbon Dioxide 25 mmol/L (20-31)
[2024-09-24 06:53] LABS: Glucose 131 mg/dL (74-106)
[2024-09-24 06:54] LABS: BUN/Creatinine Ratio 10.8 (10.0-20.0); Blood Urea Nitrogen 7 mg/dL (9-23)
[2024-09-24 08:00] VITALS: PULSE 102; PULSE 115; RESP 18; O2SAT 97
[2024-09-24] MEDS: THIAMINE HCL 100 MG TAB PO SCH (09:04)
[2024-09-24] MEDS: MULTIPLE VITAMIN TAB PO SCH (09:16)
[2024-09-24] MEDS: METOPROLOL TARTRATE 25 MG TAB PO SCH (09:16)
[2024-09-24 09:17] VITALS: BP 128/78; PULSE 115; RESP 18; TEMP 98.2; O2SAT 97
--- NOTE | 2024-09-24 10:21 | DVHPN2 ---
Subjective Patient denies any symptoms. Reviewed: Care Plan, H&P, Labs, Medications Changes from previous H/P or p: No Changes General: Per HPI Objective Vitals Vital Signs Date Time Temp Pulse Resp B/P (MAP) Pulse Ox O2 Delivery O2 Flow Rate FiO2 09/24/24 09:17 98.2 115 18 128/78 (95) 97 98.2 09/23/24 20:00 Room Air* 0 21 Intake/Output Intake and Output 09/24/24 07:00 Intake Total 4240 ml Output Total 5230 ml Balance -990 ml Intake Oral 3960 ml IV Total 280 ml Output Urine Total 5230 ml General Appearance: Alert, Oriented X3, Cooperative, mild distress HEENT: Atraumatic, PERRLA Lungs: Clear to auscultation, Normal air movement Cardiovascular: Normal S1, Normal S2, Other (Sinus tachycardic) Abdomen: Normal bowel sounds, Soft, No tenderness Musculoskeletal: Normal sensory function, Normal motor function Neuro: Normal gait, Normal speech Psych/Mental Status: Mental status NL, Mood NL Medications Current Medications Medications Dose Ordered Sig/Tommy Route Start Time Stop Time Status Last Admin Dose Admin Ondansetron HCl 4 mg Q4HP PRN IV 09/22/24 00:00 Nitroglycerin 0.4 mg Q5MINP PRN SL 09/22/24 00:00 Morphine Sulfate 2 mg Q30M PRN IV 09/22/24 00:00 Quetiapine Fumarate 100 mg BID PO 09/22/24 22:00 09/24/24 09:04 100 MG Hydroxyzine HCl 10 mg Q6HP PRN PO 09/22/24 14:30 09/22/24 18:32 10 MG Diagnostic Test (Pha) 1 strip ACHS 09/22/24 17:00 09/24/24 07:01 1 STRIP Insulin Human Regular ACHS SC 09/22/24 17:00 09/24/24 07:02 2 UNITS Dextrose 50 ml UD PRN IV 09/22/24 14:30 Lorazepam 0.5 mg Q4HPRN PRN PO 09/22/24 18:15 09/24/24 09:04 0.5 MG Acetaminophen 650 mg Q6HP PRN PO 09/23/24 10:45 09/24/24 09:05 650 MG Multivitamins 1 tab DAILY PO 09/24/24 10:00 09/24/24 09:16 1 TAB Thiamine HCl 100 mg DAILY PO 09/24/24 10:00 09/24/24 09:04 100 MG Metoprolol Tartrate 50 mg BID PO 09/24/24 10:00 09/24/24 09:16 50 MG Laboratory Results Laboratory Tests 09/22/24 05:40 09/24/24 05:57 Chemistry Test 09/24/24 05:57 Calcium Level 9.3 mg/dL (8.7-10.4) Urinalysis Test 09/21/24 22:07 Urine Color Colorless (Yellow) Urine Clarity Clear (Clear) Urine pH 5.0 (5.0-9.0) Urine Specific [place] 1.005 (1.001-1.035) Urine Protein Negative (Negative) Urine Ketones Negative (Negative) Urine Blood Negative /uL (Negative) Urine Nitrite Negative (Negative) Urine Bilirubin Negative (Negative) Urine Urobilinogen Normal mg/dL (Negative) Urine Leukocyte Esterase Negative /uL (Negative) Urine RBC 2 /hpf (0 - 4) Urine WBC 2 /hpf (0 - 5) Urine Squamous Epithelial Cells Few /hpf (<5) Urine Bacteria Few /hpf (None Seen) H Urine Glucose Normal mg/dL (Normal) Labs and/or images reviewed: Labs reviewed by me, Image(s) reviewed by me Assessment/Plan Assessment/Plan Impression: -suicidal ideation with suicide attempt. Patient took metoprolol and Xanax, prescribed medications to her -diabetes mellitus -toxic metabolic encephalopathy -probable schizoaffective disorder -primary hypertension -alcoholism Plan: Events: Psychiatry recommendations reviewed. Patient will be transferred to inpatient psychiatry. We will attempt to get 5150 while in the hospital. This was discussed with the patient who is agreeable to plan of care. -continue MVI, thiamine -patient continues to report having a lot of anxiety, depression, inability to sleep. -psychiatry consultation, recommendations reviewed -continue Seroquel 100 mg p.o. b.i.d. -discontinue Daly catheter -hydroxyzine 10 mg p.o. q.6 hours as needed for anxiety, insomnia -regular insulin sliding scale -monitor patient closely, recommend bedside sitter Total time spent with patient discussing and formulating plan of care: 35 minutes. This medical document was created using an electronic medical record system with [employer] system. Although this document has been carefully reviewed, there may still be some phonetic and typographical errors. These areas are purely typographical due to imperfections of the software programs, and do not reflect any compromise in the patient's medical care. Plan discussed with: Patient, Other (Rn) My Orders Orders - EMBER COOK NP Procedure Category Date Status Time Acetaminophen Tablet PHA 09/23/24 In Process (Tylenol Tablet) 10:45 Multiple Vitamin PHA 09/24/24 In Process Tablet (Mvi Tab) 10:00 Thiamine Tab PHA 09/24/24 In Process 10:00 Communication Order ORDERS 09/23/24 Transmitted 10:36 Metoprolol Tartrate PHA 09/24/24 In Process Tablet (Lopressor Ta 10:00 * Sales Out[employer] CONS 09/24/24 Transmitted Consult Discontinue Daly OLVIN 09/24/24 In Process Catheter 09:28 Date of Service: Sep 24, 2024 Billing Provider: EMBER COOK NP Common Visit Codes: [id number] INP/OBS CARE(HIGH) EMBER COOK NP Sep 24, 2024 10:21
[2024-09-24 13:00] VITALS: BP 107/67; PULSE 102; RESP 20; TEMP 97.5; O2SAT 99
--- NOTE | 2024-09-24 13:58 | DVHDS2 ---
Discharge Summary Date of Admission Sep 21, 2024 at 23:59 Date of Discharge: Sep 24, 2024 Admitting Diagnosis Toxic encephalopathy Labs/Diagnostic Data: Laboratory Results Test 09/24/24 05:57 09/23/24 17:18 09/23/24 09:14 09/22/24 05:40 Sodium Level 140 mmol/L (136-145) Potassium Level 3.8 mmol/L (3.5-5.1) Chloride Level 104 mmol/L (98-107) Carbon Dioxide Level 25 mmol/L (20-31) Anion Gap 11 (5-15) Blood Urea Nitrogen 7 mg/dL (9-23) Creatinine 0.65 mg/dL (0.550-1.02) Glomerular Filtration Rate Calc 111 mL/min (>90) BUN/Creatinine Ratio 10.8 (10.0-20.0) Serum Glucose 131 mg/dL (74-106) Calcium Level 9.3 mg/dL (8.7-10.4) POC Glucose 106 mg/dl (70-106) Magnesium Level 1.3 mg/dL (1.6-2.6) White Blood Count 2.4 10^3/uL (4.4-10.8) Red Blood Count 3.35 10^6/uL (4.0-5.20) Hemoglobin 9.4 g/dL (12.2-16.2) Hematocrit 29.4 % (36.0-46.0) Mean Corpuscular Volume 87.7 fL (80.0-100.0) Mean Corpuscular Hemoglobin 28.0 pg (28.0-32.0) Mean Corpuscular Hemoglobin Concent 31.9 g/dL (32.0-36.0) Red Cell Distribution Width 19.2 % (11.8-14.3) Platelet Count 256 10^3/uL (140-450) Mean Platelet Volume 7.8 fL (6.9-10.8) Neutrophils (%) (Auto) 72.6 % (37.0-80.0) Lymphocytes (%) (Auto) 24.3 % (10.0-50.0) Monocytes (%) (Auto) 2.7 % (0.0-12.0) Eosinophils (%) (Auto) 0.0 % (0.0-7.0) Basophils (%) (Auto) 0.4 % (0.0-2.0) Neutrophils # (Auto) 1.8 10 ^3/uL (1.6-8.6) Lymphocytes # (Auto) 0.6 10 ^3/uL (0.4-5.4) Monocytes # (Auto) 0.1 10 ^3/uL (0-1.3) Eosinophils # (Auto) 0 10 ^3/uL (0-0.8) Basophils # (Auto) 0 10 ^3/uL (0-0.2) Nucleated Red Blood Cells 0.0 % Hemoglobin A1c 5.5 % A1C (<5.7) Total Bilirubin 0.2 mg/dL (0.2-1.0) Aspartate Amino Transferase (AST) 14 U/L (13-40) Alanine Aminotransferase (ALT) 19 U/L (7-40) Alkaline Phosphatase 69 U/L (46-116) Total Protein 5.9 g/dL (5.7-8.2) Albumin 3.9 g/dL (3.2-4.8) Test 09/22/24 00:21 09/21/24 22:07 09/21/24 21:52 Troponin I High Sensitivity < 3 ng/L (</=34) Urine Color Colorless (Yellow) Urine Clarity Clear (Clear) Urine pH 5.0 (5.0-9.0) Urine Specific [place] 1.005 (1.001-1.035) Urine Protein Negative (Negative) Urine Ketones Negative (Negative) Urine Blood Negative /uL (Negative) Urine Nitrite Negative (Negative) Urine Bilirubin Negative (Negative) Urine Urobilinogen Normal mg/dL (Negative) Urine Leukocyte Esterase Negative /uL (Negative) Urine RBC 2 /hpf (0 - 4) Urine WBC 2 /hpf (0 - 5) Urine Squamous Epithelial Cells Few /hpf (<5) Urine Bacteria Few /hpf (None Seen) Urine Glucose Normal mg/dL (Normal) Urine Opiates Screen Neg (NEGATIVE) Urine Fentanyl Screen Neg (NEGATIVE) Urine Barbiturates Screen Neg (NEGATIVE) Urine Phencyclidine Screen Neg (NEGATIVE) Urine Amphetamines Screen Neg (NEGATIVE) Urine Benzodiazepines Screen Pos (NEGATIVE) Urine Cocaine Screen Neg (NEGATIVE) Urine Cannabinoids Screen Neg (NEGATIVE) Salicylates Level < 3.0 mg/dL (-30) Acetaminophen Level < 2.0 UG/ML (10.0-20.0) Plasma/Serum Blood Alcohol 222.5 mg/dL (<10) Other Laboratory Tests 09/24/24 05:57 09/22/24 05:40 Brief Hx & Hospital Course: History of Present Illness 44-year-old female presents for evaluation of altered mental status. Patient presents for evaluation of altered mental status after she took an unknown amount of Xanax and metoprolol. Per family patient took the medication in attempt to commit suicide. She has had two other previous attempts. She is currently lethargic and responsive painful stimuli. Course of hospitalization: Patient was given Romazicon and glucagon in the emergency room. The patient's mentation improved. The patient also had no signs of bradycardia in his actually tachycardic. Patient is also without hypotension. Long discussion was made with the patient who reported having suicidal ideation and intentionally took metoprolol and Xanax because, she does not want to be here anymore. Psychiatry consultation was obtained with recommendations for 5150 hold as well as transfer to involuntary psychiatric facility. Discussion was made with the patient who is agreeable to be transferred to psychiatric facility. Patient also reports having severe alcoholism, drinking up to a 5th of Tequila a day. Patient was started on MVI, thiamine. No signs of DTs were noted in the hospital. Patient was medically cleared to be transferred for psychiatric care. Physical examination General: Alert and Oriented x3. No acute distress. Well-nourished. Eyes: EOMI. Anicteric. HENT: Moist mucous membranes. Lungs: Clear to auscultation bilaterally. No accessory muscle use. Cardiovascular: Regular rate and rhythm. No murmur. No JVD. Abdomen: Soft, non-tender and non-distended. No palpable masses. Extremities: No edema. Non-tender. Skin: No rashes or lesions. Warm. Neurologic: No focal neurological deficits. CN II-XII grossly intact, but not individually tested. Psychiatric: Cooperative. Appropriate mood and affect. Total time spent with patient discussing and formulating plan of care: 35 minutes. This medical document was created using an electronic medical record system with [employer] system. Although this document has been carefully reviewed, there may still be some phonetic and typographical errors. These areas are purely typographical due to imperfections of the software programs, and do not reflect any compromise in the patient's medical care. Condition at Discharge: Guarded Final Diagnosis/Problems List Toxic metabolic encephalopathy Secondary Diagnosis: -suicidal ideation with suicide attempt. Patient took metoprolol and Xanax, prescribed medications to her -diabetes mellitus -toxic metabolic encephalopathy -probable schizoaffective disorder -primary hypertension -alcoholism Discharge Disposition: Psychiatric Facility Discharge Instruct/Medications Diet: Cardiac 2g Na,low cholest Medications: Refer to medication reconciliation form 36 Discharge Statement: "Patient was advised to return to the ER or call 911 if any headaches, dizziness, shortness of breath, chest pain, abdominal pain, bleeding, fevers, or worsening of medical condition. Patient was counseled about treatment plan, medications, possible side effects, patientverbalized understanding. All questions were answered to the best of my ability. This discharge took greater then 30 minutes in planning, reviewing documentation, counseling the patient, and discussing with other team members." ASSESSMENT ASSESSMENT Assessment Date of Service: Sep 24, 2024 Billing Provider: EMBER COOK NP Common Visit Codes: [id number] INP/OBS CARE(HIGH) EMBER COOK NP Sep 24, 2024 13:58
[2024-09-24 14:59] VITALS: BP 128/78; PULSE 115; RESP 18; TEMP 98.2; O2SAT 97
[2024-09-24 17:00] VITALS: BP 118/77; PULSE 100; RESP 18; TEMP 97.6; O2SAT 98
== END 2024-09-24 17:55 | DRG 812 ==
LOC: EDBD 21:11 → EDUNIT# 21:11 → ER 21:11 → TELE 23:59 → TELE-CENTR 09-23 17:34
PROVIDERS: ADMIT Nurse Practitioner; ATTEND Nurse Practitioner Acute Care
DX: T42.4X1A Poisoning by benzodiazepines, accidental (unintentional), initial encounter (principal); G92.8 Other toxic encephalopathy; F25.9 Schizoaffective disorder, unspecified; R45.851 Suicidal ideations; F31.9 Bipolar disorder, unspecified; E11.9 Type 2 diabetes mellitus without complications; I10 Essential (primary) hypertension; F41.9 Anxiety disorder, unspecified; F10.10 Alcohol abuse, uncomplicated; Y90.7 Blood alcohol level of 200-239 mg/100 ml; Z98.51 Tubal ligation status; Y92.89 Other specified places as the place of occurrence of the external cause; Z91.51 Personal history of suicidal behavior; Z79.899 Other long term (current) drug therapy
CPT/HCPCS: 36415; 71045; 80048; 80053; 80307; 80320; 80329; 81001; 82962; 83036; 83735; 84484; 85025; 93005; 99291; G0378; J1815